=== PATIENT | male | born 1985 | race Caucasian/White ===

== ENCOUNTER → 2018-04-21 09:13 | Outpatient (CLI) | payer OTHER, SELFPAY ==
--- NOTE | 2018-04-21 09:19 | RAD_ITS ---
STUDY: X-RAY - LUMBAR SPINE REASON FOR EXAM: Male, 33 years old. Recurrent low back pain. TECHNIQUE: 5 view(s) of the lumbar spine were obtained including oblique views. COMPARISON: None FINDINGS: There is straightening of the normal lumbar lordosis. There is no substantial scoliosis. There is a normal alignment of the vertebrae. Normal vertebral bodies and endplates. Normal disc space heights. The soft tissue structures are unremarkable. RAD/L/S Spine Min 4 Views IMPRESSION: There is straightening of the normal lumbar lordosis. Electronically Signed: Pablo Cantrell MD at 13:48 EDT Tel [phone], Service support ,
== END ==
PROVIDERS: Family Provider Family Medicine; PCP Family Medicine; Visit Provider Family Medicine
DX: M54.5 Low back pain (principal)
CPT/HCPCS: 72110

== ENCOUNTER → 2019-05-03 13:16 | Outpatient (CLI) | payer OTHER, SELFPAY ==
[2015-05-11 19:13] VITALS: BMI 25.2
== END ==
PROVIDERS: Family Provider Family Medicine; PCP Family Medicine; Referring Provider Family Medicine; Visit Provider Family Medicine
DX: L03.90 Cellulitis, unspecified (principal)
CPT/HCPCS: 87070; 87077; 87186; 87205

== ENCOUNTER → 2019-09-26 08:25 | Outpatient (CLI) | payer OTHER, SELFPAY ==
[2015-05-11 19:13] VITALS: BMI 25.2
[2019-09-26 10:22] LABS: Anion Gap 9 (5-15); BUN 11 mg/dL (7-18); BUN/Creat Ratio 9.2 RATIO (10-20); Calcium,Total 8.7 mg/dL (8.5-10.1); Chloride 104 mmol/L (98-107); Cholesterol 222 mg/dL (200); Creatinine, Serum 1.19 mg/dL (0.70-1.30); EST Glomerular Filtration Rate 74 mL/min (>60); Est Glom Filt Rate - Afr Amer 90 mL/min (>60); Glucose 114 mg/dL (74-106); High Density Lipoprotein 34 mg/dL; Potassium 3.2 mmol/L (3.5-5.1); Sodium Level 141 mmol/L (136-145); Triglycerides 408 mg/dL
== END ==
PROVIDERS: Family Provider Family Medicine; PCP Family Medicine; Visit Provider Family Medicine
DX: Z00.00 Encounter for general adult medical examination without abnormal findings (principal)
CPT/HCPCS: 36415; 80048; 80061

== ENCOUNTER → 2019-10-16 13:12 | Outpatient (CLI) | payer OTHER, SELFPAY ==
[2015-05-11 19:13] VITALS: BMI 25.2
--- NOTE | 2019-10-16 13:17 | RAD_ITS ---
STUDY: X-RAY - PARANASAL SINUSES REASON FOR EXAM: Male, 34 years old. Headaches and dizziness. TECHNIQUE: 5 view(s) of the paranasal sinuses were obtained. COMPARISON: None. FINDINGS: Normal visualized frontal, maxillary, ethmoidal and sphenoid sinuses. Normal visualized facial bones. The soft tissue structures are unremarkable. RAD/Sinuses min 3 Views IMPRESSION: Normal x-rays of the paranasal sinuses. Electronically Signed: Griselda Chavez MD at 2:15 EST , Service support ,
[2019-10-16 15:37] LABS: Absolute Lymphocyte Count 1.47 X10^3/uL (0.83-4.51); Absolute Neutrophil Count 4.9 X10^3/uL (2.0-7.7); Basophil# 0.02 X10^3/uL; Basophil% 0.3 % (0-1); Eosinophil# 0.08 X10^3/uL; Eosinophils% 1.2 % (0-5); Hematocrit 44.8 % (40-54); Hemoglobin 14.8 g/dL (13.0-16.5); Lymphocyte # 1.47 X10^3/ul (4.0); Lymphocyte % 21.5 % (19-41); Mean Corpuscular Hgb 28.3 pg (27.0-32.0); Mean Corpuscular Volume 85.7 fL (80-94); Monocyte# 0.41 X10^3/uL; NRBC Flagged by Analyzer 0 % (0-5); Neutrophil # 4.85 X10^3/uL (2.7-7.7); Neutrophil % 70.9 % (47-70); Platelet Count 200 K/mm3 (150-450); RBC Distribution Width SD 40.1 fl (35.1-43.9); Red Blood Count 5.23 M/mm3 (4.6-6.2); White Blood Count 6.8 K/mm3 (4.4-11.0)
[2019-10-16 16:06] LABS: ALB/GLOB Ratio 1.2 RATIO (0.9-2.4); AST(SGOT) 22 U/L (15-37); Alanine Aminotransfer ALT/SGPT 39 U/L (16-61); Albumin, Serum 4.4 g/dL (3.2-5.0); Alkaline Phosphatase 80 U/L (45-117); Anion Gap 10 (5-15); BUN 12 mg/dL (7-18); BUN/Creat Ratio 10.3 RATIO (10-20); CRP < 2.90 mg/L (0.0-3.0); Calcium,Total 8.8 mg/dL (8.5-10.1); Chloride 105 mmol/L (98-107); Creatinine, Serum 1.16 mg/dL (0.70-1.30); EST Glomerular Filtration Rate 76 mL/min (>60); Est Glom Filt Rate - Afr Amer 92 mL/min (>60); Globulin 3.8 g/dL (2.2-4.2); Glucose 103 mg/dL (74-106); Magnesium 2.1 mg/dL (1.6-2.6); Potassium 3.1 mmol/L (3.5-5.1); Protein, Total 8.2 g/dL (6.4-8.2); Sodium Level 140 mmol/L (136-145)
[2019-10-18 16:08] LABS: Cytoplasmic Ab (C-ANCA) <1:20 titer (Neg:<1:20)
[2019-10-18 18:45] LABS: Perinuclear Ab (P-ANCA) <1:20 titer (Neg:<1:20)
== END ==
PROVIDERS: Family Provider Family Medicine; PCP Family Medicine; Referring Provider Family Medicine; Visit Provider Family Medicine
DX: E87.6 Hypokalemia (principal); J32.9 Chronic sinusitis, unspecified
CPT/HCPCS: 36415; 70220; 80053; 83735; 85025; 86140; 86256

== ENCOUNTER 2019-10-20 19:05 | Emergency (ER) | payer OTHER, SELFPAY ==
[2019-10-20 19:06] VITALS: BP 130/92; PULSE 85; RESP 16; TEMP 36.8; O2SAT 97; BMI 29.0
--- NOTE | 2019-10-20 19:14 | CT_ITS ---
STUDY: CTA HEAD AND NECK WITH CONTRAST REASON FOR EXAM: Male, 34 years old. Blurred vision, dissection RADIATION DOSAGE (If Supplied By Facility): CTDIvol = ( 29.51 ) mGy, DLP = ( 1505.48 ) mGycm TECHNIQUE: CT angiography was performed with a multi-detector CT scanner. Data acquisition was obtained from the skull base through the vertex following intravenous administration of IV Isovue 300 100ML. MIP images were reconstructed from the axial data set. Post-processing of the angiographic images was performed, with multiplanar reformation and 3D reconstruction. Individualized dose optimization techniques were used for this CT. COMPARISON: No relevant priors. FINDINGS: Normal bilateral petrous carotid arteries. Normal right cavernous carotid artery with a normal supraclinoid bifurcation. Normal left cavernous carotid artery with a normal supraclinoid bifurcation. Normal right A1 segments of the anterior cerebral artery. Normal left A1 segments of the anterior cerebral artery. Normal intact anterior communicating artery (ACOM). Normal bilateral A2 segments of the anterior cerebral arteries. Normal right M1 and M2 segments of the middle cerebral arteries, with a normal M1 bifurcation. Normal left M1 and M2 segments of the middle cerebral arteries, with a normal M1 bifurcation. Normal posterior communicating arteries. Normal left vertebral artery. 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 Normal basilar artery with a normal basilar bifurcation. The visualized bilateral superior cerebellar (SCA) arteries are normal. Normal bilateral P1, P2 and visualized P3 segments of the posterior cerebral arteries. There is no demonstrated aneurysm of the [place] of [place]. There is no demonstrated abnormality of the visualized brain. AORTIC ARCH: Normal visualized aortic arch. Normal origins of the brachiocephalic, left common carotid, and left subclavian arteries. RIGHT CAROTID ARTERIES: Normal right common carotid artery (CCA). Normal right common carotid bulb. Normal origin of the right internal carotid (ICA) artery without a hemodynamically significant stenosis. Normal visualized cervical portion of the right internal carotid artery. Normal origin of the right external carotid artery (ECA). LEFT CAROTID ARTERIES: Normal left common carotid artery (CCA). Normal left common carotid bulb. Normal origin of the left internal carotid (ICA) artery without a hemodynamically significant stenosis. Normal visualized cervical portion of the left internal carotid artery. Normal origin of the left external carotid artery (ECA). VERTEBRAL ARTERIES: Normal left vertebral artery. Mild hypoplasia of the lateral right vertebral artery. CT/CTA Head AND Neck W/ Contrast IMPRESSION: Normal CTA Head and neck with contrast. No aneurysm or dissection. 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 Electronically Signed: Ayo Rivera DO at 20:17 EST Tel [phone], Service support ,
[2019-10-20] MEDS: 0.9% Normal Saline 1,000 ML 1000 ML IV (19:23)
[2019-10-20] MEDS: proCHLORPERazine 10 MG/2 ML Vial 5 MG IV (19:24)
[2019-10-20] MEDS: DiphenhydrAMINE 50 MG/ML Syringe 25 MG IV (19:24)
--- NOTE | 2019-10-20 19:25 | ED.VIS.GEN ---
History of Present Illness Chief Complaint: Dizziness Informant: Patient Onset: Days Context: Gradual Onset Timing: Intermittent Current Severity: Moderate Maximum Severity: Moderate Narrative: The patient presents to the emergency department with headache and dizziness. He states he been having symptoms intermittently for the past few weeks. He is followed up with his primary care on Wednesday. States that he had x-rays done of the sinuses and blood work done. He was found to be hypokalemic. There was concern for sinusitis so he was started on Augmentin and prednisone. He states despite this treatment, he actually feels it is getting worse. He describes a frontal headache, pain in his eyes, and photophobia. He denies any weakness or numbness. He denies any change in speech or change in gait. He is otherwise been in his normal state of health. Prior similar symptoms: No Recent Illness/Hospitalization: No Past Medical History - Allergies and Home Meds Allergies/Adverse Reactions: Allergies No Known Allergies Allergy (Verified 10/20/19 19:06) Primary Care Physician: Alexis Campuazno MD [Primary Care Provider] - Prior records reviewed: Yes Past Medical History: - - Hypokalemia Smoking Status: Never smoker Review of Systems General: Denies: Chills, Fever, Sweats Eyes: Denies: Visual changes - bilaterally, Diplopia ENT: Denies: Rhinorrhea, Sore throat Cardiovascular: Denies: Chest pain, Palpitations Respiratory: Denies: Dyspnea, Cough, Dyspnea on exertion Gastrointestinal: Reports: Nausea. Denies: Abdominal pain, Vomiting, Diarrhea, Melena, Hematochezia Genitourinary: Denies: Dysuria, Hematuria, Frequency Musculoskeletal: Denies: Back pain, Extremity Pain Skin: Denies: Rash, Wounds Neurological: Reports: Headache. Denies: Weakness, Numbness Physical Exam Vital Signs/Narrative: Vital Signs Temp Pulse Resp BP Pulse Ox 10/20/19 19:06 98.3 F 85 16 130/92 H 97 Inital Vital Signs reviewed: Yes General: Well nourished, Well developed, No Acute Distress Head: Normocephalic, Atraumatic Eyes: Perrl, EOMI ENT: Moist mucous membranes, No rhinorrhea Neck: Supple, Nontender Cardiovascular: Regular rate, Regular rhythm, No murmurs Respiratory: No distress, CTA bilaterally, Chest nontender Abdomen: Soft, Nontender, Nondistended, Normal bowel sounds Back: Nontender, Normal Inspection Extremities: Nontender, No edema Skin: Normal color, No rash Neurological: Alert, Oriented x3, Cranial nerves II-XII grossly intact, Normal Strength, Normal Sensation Psychological: Normal affect, Normal Mood Diagnostic/Tx/Re-eval Clinical Impression(s) from Imaging Studies Head/Neck CTA 10/20/19 19:14 IMPRESSION: Normal CTA Head and neck with contrast. No aneurysm or dissection. 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 Electronically Signed: Ayo Rivera DO at 20:17 EST Tel [phone], Service support , Abnormal Lab Results 10/20/19 10/20/19 19:20 19:20 WBC 9.9 RBC 5.34 Hgb 15.6 Hct 45.8 MCV 85.8 MCH 29.2 MCHC 34.1 RDW Std Deviation 40.1 RDW Coeff of Danii 13.0 Plt Count 207 MPV 10.5 Immature Gran % (Auto) 0.400 Neut % (Auto) 62.7 Lymph % (Auto) 30.0 [place] % (Auto) 5.8 Eos % (Auto) 0.9 Baso % (Auto) 0.2 Absolute Neuts (auto) 6.2 Absolute Lymphs (auto) 2.98 Nucleated RBC % 0 Sodium 141 Potassium 3.1 L Chloride 105 Carbon Dioxide 29.0 Anion Gap 7 BUN 10 Creatinine 1.06 Estim Creat Clear Calc 110.97 Est GFR (MDRD) Af Amer 103 Est GFR (MDRD) Non-Af 85 BUN/Creatinine Ratio 9.4 L Glucose 129 H Calcium 8.7 Total Bilirubin 0.30 AST 26 ALT 51 Alkaline Phosphatase 80 Total Protein 7.9 Albumin 4.1 Globulin 3.8 Albumin/Globulin Ratio 1.1 - Medical Decision Making The patient presents to the emergency department with dizziness and frontal headache. He states of the past few days, he feels like his symptoms worsen. He has a reassuring neurologic exam. He is not meningitic or encephalopathic. However, given the waxing and waning of his symptoms I did obtain a noncontrast head CT and CTA's of his arterial structures. There is no evidence of acute abnormality. The patient was found to be hypokalemic which was replaced orally. He was initially given Compazine and Benadryl with no improvement. He was then given meclizine. He did have some improvement. I discussed his work-up and plan of care with Dr. Randolph Kemp, the patient's primary care physician. He is in agreement. At this point, I do feel the patient can safely be discharged. He is going to follow-up early next week or return with any worsening symptoms. Impression 1. Vertigo 2. Hypokalemia ED Disposition - Plan for ED Patient: Instructions: VERTIGO, Unspecified Prescriptions: Meclizine HCl 25 mg PO TID PRN PRN #30 tab PRN Reason: Dizziness Prescription Printed Referrals: Alexis Campuzano MD [Primary Care Provider] -
[2019-10-20 19:41] LABS: ALB/GLOB Ratio 1.1 RATIO (0.9-2.4); AST(SGOT) 26 U/L (15-37); Alanine Aminotransfer ALT/SGPT 51 U/L (16-61); Albumin, Serum 4.1 g/dL (3.2-5.0); Alkaline Phosphatase 80 U/L (45-117); Anion Gap 7 (5-15); BUN 10 mg/dL (7-18); BUN/Creat Ratio 9.4 RATIO (10-20); Calcium,Total 8.7 mg/dL (8.5-10.1); Chloride 105 mmol/L (98-107); Creatinine, Serum 1.06 mg/dL (0.70-1.30); EST Glomerular Filtration Rate 85 mL/min (>60); Est Glom Filt Rate - Afr Amer 103 mL/min (>60); Estimated Creatinine Clearance 110.97 ml/min; Globulin 3.8 g/dL (2.2-4.2); Glucose 129 mg/dL (74-106); Potassium 3.1 mmol/L (3.5-5.1); Protein, Total 7.9 g/dL (6.4-8.2); Sodium Level 141 mmol/L (136-145)
[2019-10-20 19:55] VITALS: BP 110/80; PULSE 57; RESP 16; O2SAT 100
[2019-10-20 20:18] LABS: Absolute Lymphocyte Count 2.98 X10^3/uL (0.83-4.51); Absolute Neutrophil Count 6.2 X10^3/uL (2.0-7.7); Basophil# 0.02 X10^3/uL; Basophil% 0.2 % (0-1); Eosinophil# 0.09 X10^3/uL; Eosinophils% 0.9 % (0-5); Hematocrit 45.8 % (40-54); Hemoglobin 15.6 g/dL (13.0-16.5); Lymphocyte # 2.98 X10^3/ul (4.0); Mean Corp Hgb Conc 34.1 g/dL (32-36); Mean Corpuscular Hgb 29.2 pg (27.0-32.0); Mean Corpuscular Volume 85.8 fL (80-94); Mean Platelet Vol. 10.5 fl (6.2-12.0); Monocyte# 0.58 X10^3/uL; Monocyte% 5.8 % (0-10); NRBC Flagged by Analyzer 0 % (0-5); Neutrophil # 6.22 X10^3/uL (2.7-7.7); Neutrophil % 62.7 % (47-70); Platelet Count 207 K/mm3 (150-450); RBC Distribution Width SD 40.1 fl (35.1-43.9); Red Blood Count 5.34 M/mm3 (4.6-6.2); White Blood Count 9.9 K/mm3 (4.4-11.0)
[2019-10-20] MEDS: Meclizine HCl 25 MG Tablet PO (20:28)
[2019-10-20 21:25] VITALS: BP 114/73; PULSE 65; RESP 16; O2SAT 97
== END 2019-10-20 21:26 | disposition home or self-care (01) ==
LOC: ED 19:48
PROVIDERS: Emergency Provider Emergency Medicine; Family Provider Family Medicine; PCP Family Medicine
DX: R42 Dizziness and giddiness (principal); E87.6 Hypokalemia; R11.0 Nausea; R51 Headache; Z79.52 Long term (current) use of systemic steroids; Z79.899 Other long term (current) drug therapy
CPT/HCPCS: 70496; 70498; 80053; 85025; 96361; 96374; 96375; 99285; J7030; Q9967

== ENCOUNTER → 2019-10-27 10:49 | Outpatient (CLI) | payer OTHER, SELFPAY ==
[2019-10-20 19:06] VITALS: BMI 29.0
[2019-10-27 12:24] LABS: Anion Gap 9 (5-15); BUN 11 mg/dL (7-18); BUN/Creat Ratio 10.5 RATIO (10-20); Calcium,Total 8.5 mg/dL (8.5-10.1); Chloride 104 mmol/L (98-107); Creatinine, Serum 1.05 mg/dL (0.70-1.30); EST Glomerular Filtration Rate 86 mL/min (>60); Est Glom Filt Rate - Afr Amer 104 mL/min (>60); Glucose 99 mg/dL (74-106); Potassium 3.7 mmol/L (3.5-5.1); Sodium Level 137 mmol/L (136-145)
[2019-11-02 11:53] LABS: Aldosterone, Serum 8.6 ng/dL (0.0-30.0)
== END ==
PROVIDERS: Family Provider Family Medicine; PCP Family Medicine; Referring Provider Family Medicine; Visit Provider Family Medicine
DX: E87.6 Hypokalemia (principal); R42 Dizziness and giddiness
CPT/HCPCS: 36415; 80048; 82088; 82533

== ENCOUNTER 2019-10-31 14:22 | Emergency (ER) | payer OTHER, SELFPAY ==
[2019-10-31 14:23] VITALS: BP 143/73; PULSE 89; RESP 18; TEMP 36.6; O2SAT 98; BMI 26.4
--- NOTE | 2019-10-31 14:41 | RAD_ITS ---
STUDY: X-RAY CHEST REASON FOR EXAM: Male, 34 years old. Chest pain and chest congestion. TECHNIQUE: PA and lateral views of the chest. COMPARISON: None. FINDINGS: The lungs are clear and expanded. Scattered calcified granulomas. There is no demonstrated pleural abnormality. Normal size heart. Normal mediastinum and nina. Normal visualized pulmonary arteries. Normal visualized aortic arch and descending thoracic aorta. Normal visualized thoracic spine. Normal visualized ribs, clavicles, and shoulders. There is no demonstrated abnormality of the visualized soft tissue structures of the upper abdomen. RAD/Chest PA and Lateral IMPRESSION: Normal x-ray examination of the chest. Electronically Signed: Pablo Cantrell, at 14:59 EST , Service support ,
--- NOTE | 2019-10-31 14:41 | EKG12_ITS ---
Test Reason : CP Blood Pressure : / mmHG Vent. Rate : 076 BPM Atrial Rate : 076 BPM P-R Int : 144 ms QRS Dur : 074 ms QT Int : 342 ms P-R-T Axes : 068 048 003 degrees QTc Int : 384 ms Normal sinus rhythm Nonspecific ST abnormality Abnormal ECG Confirmed by OMAR JIMENEZ ([id number]), slot editor JAISON MATT ([id number]) on 11/05/2019 9:22:07 AM Referred By: Alexis Campuzano Confirmed By:OMAR JIMENEZ
[2019-10-31 15:55] VITALS: BP 112/72; PULSE 77; RESP 16; O2SAT 96
[2019-10-31 16:05] LABS: Absolute Neutrophil Count 5.2 X10^3/uL (2.0-7.7); Basophil# 0.02 X10^3/uL; Basophil% 0.3 % (0-1); Eosinophil# 0.06 X10^3/uL; Eosinophils% 0.8 % (0-5); Hematocrit 45.5 % (40-54); Hemoglobin 15.4 g/dL (13.0-16.5); Lymphocyte % 21.8 % (19-41); Mean Corp Hgb Conc 33.8 g/dL (32-36); Mean Corpuscular Volume 85.7 fL (80-94); Mean Platelet Vol. 10.3 fl (6.2-12.0); Monocyte# 0.46 X10^3/uL; Monocyte% 6.3 % (0-10); NRBC Flagged by Analyzer 0 % (0-5); Neutrophil # 5.16 X10^3/uL (2.7-7.7); Neutrophil % 70.3 % (47-70); Platelet Count 195 K/mm3 (150-450); RBC Distribution Width SD 40.5 fl (35.1-43.9); Red Blood Count 5.31 M/mm3 (4.6-6.2); White Blood Count 7.3 K/mm3 (4.4-11.0)
--- NOTE | 2019-10-31 16:16 | ED.DCSUM_ITS ---
History of Present Illness Chief Complaint: Chest Pain Informant: Patient Narrative: Patient presenting for evaluation secondary to chest pain. Patient states that over the course of about the last 2 or 3 weeks he has been dealing with issues with headache and dizziness. He does describe the dizziness as a unsteadiness type feeling such as a vertigo. It is intermittent, not really severe. He initially was treated for possible sinusitis with antibiotics and steroids. He was seen subsequently in the emergency department for this, had CT angiograms performed of the brain and neck as well as noncontrasted head CT. This was found to be negative. Patient states that over the course of about the last 5 days he has been dealing with left-sided chest pain. He states that it is worse with taking a deep breath, and over the course of the last 3 days he has been feeling somewhat short of breath. He denies fevers. He does have a mild nonproductive cough. He denies any DVT or PE risk factors. Patient states that recently he has had some posterior pharyngeal drainage that has been causing some discomfort with swallowing. He denies any rhinorrhea. Past Medical History - Allergies and Home Meds Allergies/Adverse Reactions: Allergies No Known Allergies Allergy (Verified 10/31/19 14:25) Primary Care Physician: Alexis Campuzano MD [Primary Care Provider] - Past Medical History: None Smoking Status: Never smoker Review of Systems All systems negative except as indicated General: Denies: Chills, Fever, Sweats Eyes: Denies: Visual changes - bilaterally, Diplopia ENT: Reports: Sore throat Cardiovascular: Reports: Chest pain Respiratory: Reports: Dyspnea Gastrointestinal: Denies: Abdominal pain, Nausea, Vomiting, Diarrhea, Melena, Hematochezia Genitourinary: Denies: Dysuria, Hematuria, Frequency Musculoskeletal: Denies: Back pain, Extremity Pain Skin: Denies: Rash, Wounds Neurological: Reports: - - Vertigo. Denies: Headache Psych: Denies: Depression Endocrine: Denies: Polyuria, Polydipsia Hematologic: Denies: Easy bleeding Allergy: Denies: Swelling of the mouth Physical Exam Vital Signs/Narrative: Vital Signs Temp Pulse Resp BP Pulse Ox 10/31/19 15:55 77 16 112/72 96 10/31/19 14:23 98 F 89 18 143/73 H 98 Inital Vital Signs reviewed: Yes General: Well nourished, Well developed, No Acute Distress Head: Normocephalic, Atraumatic Eyes: Perrl, EOMI ENT: Moist mucous membranes, No rhinorrhea, TM's clear - Mild sclerosis of the patient's right tympanic membrane without evidence of retraction or erosion Neck: Supple, Nontender Cardiovascular: Regular rate, Regular rhythm, No murmurs Respiratory: No distress, CTA bilaterally, Chest nontender Abdomen: Soft, Nontender, Nondistended, Normal bowel sounds Back: Nontender, Normal Inspection Extremities: Nontender, No edema Skin: Normal color, No rash Neurological: Alert, Oriented x3, Cranial nerves II-XII grossly intact, Normal Strength, Normal Sensation, - - Normal cerebellar testing with no ataxia noted Psychological: Normal affect, Normal Mood Diagnostic/Tx/Re-eval Chest X-Ray - ED: 2 View, Read by ED Physician, Read by Radiologist, Normal - EKG Initial EKG Interpretation: - - Normal sinus rhythm with rate of [address] changes, normal T waves, no evidence of acute ischemia or arrhythmia. - Medical Decision Making Patient presented secondary to chest pain. EKG showed some nonspecific changes no evidence of ischemia or arrhythmia. PA and lateral chest x-ray by my review is found to be negative, radiology agrees. CBC chemistry troponin unremarkable. Due to the pleuritic component of the patient's pain a d-dimer was obtained which was found to be negative. Patient likely has an element of pleuritic chest pain, will be treated for pleurisy with a course of NSAIDs. Patient still has this persistent vertigo issue. He has follow-up with ear nose and throat tomorrow, and is pending a appointment with a neurologist with which she recently was referred to. I recommended that he keep these appointments. He c urrently has no evidence of infection, vascular compromise, stroke. I do not feel that the patient requires admission at this time. ED Disposition - Plan for ED Patient: Disposition: Home or Assisted Living Diagnosis: Pleurisy, Vertigo Instructions: Pleurisy Prescriptions: Naproxen [Naprosyn] 500 mg PO BID PRN #20 tab Transmission Status: Pending to [facility]/pharmacy #[id number] Referrals: Alexis Campuzano MD [Primary Care Provider] - Additional Instructions: Follow-up with ENT as well as neurology
[2019-10-31 16:20] LABS: D-Dimer Quantitative (DVT/PE) 0.33 FEU/ug/m (0.27-0.49)
[2019-10-31 16:23] LABS: Anion Gap 5 (5-15); BUN 11 mg/dL (7-18); BUN/Creat Ratio 9.2 RATIO (10-20); Calcium,Total 9.1 mg/dL (8.5-10.1); Chloride 108 mmol/L (98-107); EST Glomerular Filtration Rate 73 mL/min (>60); Est Glom Filt Rate - Afr Amer 89 mL/min (>60); Estimated Creatinine Clearance 98.03 ml/min; Glucose 99 mg/dL (74-106); Potassium 3.7 mmol/L (3.5-5.1); Sodium Level 141 mmol/L (136-145)
[2019-10-31 17:17] VITALS: BP 100/71; PULSE 69; O2SAT 98
== END 2019-10-31 17:17 | disposition home or self-care (01) ==
PROVIDERS: Emergency Provider Emergency Medicine; Family Provider Family Medicine; PCP Family Medicine
DX: R09.1 Pleurisy (principal); R42 Dizziness and giddiness; H73.891 Other specified disorders of tympanic membrane, right ear; J02.9 Acute pharyngitis, unspecified; Z79.899 Other long term (current) drug therapy
CPT/HCPCS: 71046; 80048; 84484; 85025; 85379; 93005; 99284

== ENCOUNTER 2019-12-04 08:58 | Emergency (ER) | payer OTHER, SELFPAY ==
[2019-12-04 08:59] VITALS: BP 129/79; PULSE 94; RESP 17; TEMP 36.7; O2SAT 99; BMI 28.3
--- NOTE | 2019-12-04 09:19 | ED.DCSUM_ITS ---
History of Present Illness Chief Complaint: Abd Pain Informant: Patient, Significant Other Onset: Days - Onset of illness December 01 at 0300. Patient reported periumbilical abdominal pain described as sharp with loose watery stools. States stools were no longer watery by noon on December 01. He complains of nausea without vomiting. He denies radiation of the pain. Nothing in particular makes the pain better or worse. He was treated for epididymitis with azithromycin. He took 1 dose the day prior to illness. He has not taken any since. Context: Sudden Onset Timing: Continuous Quality: Sharp pain Location: Periumbilical Current Severity: Mild Maximum Severity: Moderate Worsened by: Nothing Relieved by: Nothing Associated Symptoms: Previously documented Narrative: Onset of illness December 01 at 0300. Patient reported periumbilical abdominal pain described as sharp with loose watery stools. States stools were no longer watery by noon on December 01. He complains of nausea without vomiting. He denies radiation of the pain. Nothing in particular makes the pain better or worse. He was treated for epididymitis with azithromycin. He took 1 dose the day prior to illness. He has not taken any since. He denies dysuria, frequency, urgency or hematuria. He still complains of mild left testicular pain. There is no history of diverticulosis diverticulitis. He still has an appetite but has not eaten as much. He denies respiratory symptoms. Prior similar symptoms: No Recent Illness/Hospitalization: No - Past Medical History (1) History of hypercholesterolemia Status: Acute Past Medical History - Allergies and Home Meds Allergies/Adverse Reactions: Allergies No Known Allergies Allergy (Verified 12/04/19 08:58) Primary Care Physician: Alexis Campuzano MD [Primary Care Provider] - Prior records reviewed: Yes Lives: Spouse/ Significant Other, With Family Smoking Status: Never smoker Alcohol: Rare Drugs: None Review of Systems General: Reports: Chills, Malaise. Denies: Fever, Subjective, Sweats Eyes: Denies: Visual changes - bilaterally, Blurred Vision - bilaterally, Diplopia ENT: Denies: Bilateral ear pain, Rhinorrhea, Sore throat Cardiovascular: Denies: Chest pain, Palpitations Respiratory: Denies: Dyspnea, Cough, Dyspnea on exertion, Orthopnea, Paroxysmal nocturnal dyspnea Gastrointestinal: Reports: Abdominal pain, Nausea, Diarrhea. Denies: Vomiting, Constipation, Melena, Hematochezia Genitourinary: Denies: Dysuria, Hematuria Musculoskeletal: Denies: Myalgias, Arthralgias, Neck pain, Back pain, Swelling, Extremity Pain Skin: Denies: Rash, Wounds Neurological: Reports: Weakness. Denies: Headache, Parasthesia Endocrine: Denies: Polyuria, Polydipsia Hematologic: Denies: Easy bruising, Easy bleeding Allergy: Denies: Uticaria, Swelling of the mouth Physical Exam Vital Signs/Narrative: Vital Signs Temp Pulse Resp BP Pulse Ox 12/04/19 08:59 98.1 F 94 17 129/79 H 99 Inital Vital Signs reviewed: Yes General: Well nourished, Well developed, No Acute Distress Head: Normocephalic, Atraumatic Eyes: Perrl, EOMI. Negative for: Pale conjunctiva, Scleral icterus ENT: No rhinorrhea, Dry mucous membranes Neck: Supple, Nontender, No lymphadenopathy, No JVD Cardiovascular: Regular rate, Regular rhythm, No murmurs, Normal S1, Normal S2 Respiratory: No distress, CTA bilaterally, Chest nontender Abdomen: Soft, Nondistended - There is tympany to percussion., Normal bowel sounds, No masses, Tender. Negative for: Guarding, Rebound tenderness, Hepatomegaly, Splenomegaly, Mass, Pulsatile mass, Rovsig's sign, Calvillo's sign Rectal: Deferred Back: Nontender, Normal Inspection. Negative for: CVA tenderness Extremities: Nontender, No edema Skin: Normal color, No rash Neurological: Alert, Oriented x3, Cranial nerves II-XII grossly intact, Normal Strength, Normal Sensation Psychological: Normal affect, Normal Mood Diagnostic/Tx/Re-eval Laboratory Results 12/04/19 12/04/19 09:30 09:30 WBC 5.8 RBC 5.46 Hgb 15.6 Hct 46.9 MCV 85.9 MCH 28.6 MCHC 33.3 RDW Std Deviation 39.8 RDW Coeff of Danii 12.9 Plt Count 184 MPV 9.7 Immature Gran % (Auto) 0.300 Neut % (Auto) 67.6 Lymph % (Auto) 23.4 [place] % (Auto) 6.6 Eos % (Auto) 1.9 Baso % (Auto) 0.2 Absolute Neuts (auto) 3.9 Absolute Lymphs (auto) 1.35 Nucleated RBC % 0 Sodium 139 Potassium 3.5 Chloride 105 Carbon Dioxide 30.0 Anion Gap 4 L BUN 11 Creatinine 1.21 Estim Creat Clear Calc 97.22 Est GFR (MDRD) Af Amer 88 Est GFR (MDRD) Non-Af 73 BUN/Creatinine Ratio 9.1 L Glucose 93 Calcium 8.6 Laboratory results are unremarkable. - Medical Decision Making Patient symptoms may be secondary to adverse reaction to azithromycin. This may represent a viral illness. Because patient had poor p.o. intake will obtain basic metabolic panel to assess electrolytes and renal function. CBC was obtained to assess H&H. Since clinically he appears dehydrated he received 1 L of normal saline wide open and 20 of Bentyl p.o. for his sharp constant abdominal pain. Was informed of his results. He was informed this may secondary to the azithromycin. ED Disposition - Plan for ED Patient: Disposition: Home or Assisted Living Diagnosis: Acute abdominal pain, Nausea and vomiting Instructions: ABDOMINAL PAIN, Unkown Cause, (Male) Referrals: Alexis Campuzano MD [Primary Care Provider] - 1 Week if not improving
[2019-12-04] MEDS: 0.9% Normal Saline 1,000 ML 1000 ML IV (09:30)
[2019-12-04 09:41] LABS: Absolute Lymphocyte Count 1.35 X10^3/uL (0.83-4.51); Absolute Neutrophil Count 3.9 X10^3/uL (2.0-7.7); Basophil# 0.01 X10^3/uL; Basophil% 0.2 % (0-1); Eosinophil# 0.11 X10^3/uL; Eosinophils% 1.9 % (0-5); Hematocrit 46.9 % (40-54); Hemoglobin 15.6 g/dL (13.0-16.5); Lymphocyte # 1.35 X10^3/ul (4.0); Lymphocyte % 23.4 % (19-41); Mean Corp Hgb Conc 33.3 g/dL (32-36); Mean Corpuscular Hgb 28.6 pg (27.0-32.0); Mean Corpuscular Volume 85.9 fL (80-94); Mean Platelet Vol. 9.7 fl (6.2-12.0); Monocyte# 0.38 X10^3/uL; Monocyte% 6.6 % (0-10); NRBC Flagged by Analyzer 0 % (0-5); Neutrophil # 3.89 X10^3/uL (2.7-7.7); Neutrophil % 67.6 % (47-70); Platelet Count 184 K/mm3 (150-450); RBC Distribution Width CV 12.9 % (11.6-14.6); RBC Distribution Width SD 39.8 fl (35.1-43.9); Red Blood Count 5.46 M/mm3 (4.6-6.2); White Blood Count 5.8 K/mm3 (4.4-11.0)
[2019-12-04 09:50] LABS: Anion Gap 4 (5-15); BUN 11 mg/dL (7-18); BUN/Creat Ratio 9.1 RATIO (10-20); Calcium,Total 8.6 mg/dL (8.5-10.1); Chloride 105 mmol/L (98-107); Creatinine, Serum 1.21 mg/dL (0.70-1.30); EST Glomerular Filtration Rate 73 mL/min (>60); Est Glom Filt Rate - Afr Amer 88 mL/min (>60); Estimated Creatinine Clearance 97.22 ml/min; Glucose 93 mg/dL (74-106); Potassium 3.5 mmol/L (3.5-5.1); Sodium Level 139 mmol/L (136-145)
[2019-12-04] MEDS: Dicyclomine 10 MG Capsule 20 MG PO (09:54)
== END 2019-12-04 10:54 | disposition home or self-care (01) ==
PROVIDERS: Emergency Provider Emergency Medicine; Family Provider Family Medicine; PCP Family Medicine
DX: R10.33 Periumbilical pain (principal); R11.2 Nausea with vomiting, unspecified; E78.00 Pure hypercholesterolemia, unspecified; Z79.899 Other long term (current) drug therapy
CPT/HCPCS: 80048; 85025; 96360; 99284; J7030; A4216

== ENCOUNTER → 2019-12-21 09:21 | Outpatient (CLI) | payer OTHER, SELFPAY ==
[2019-12-04 08:59] VITALS: BMI 28.3
--- NOTE | 2019-12-21 09:35 | MRI_ITS ---
STUDY: MRI BRAIN WITH AND WITHOUT CONTRAST REASON FOR EXAM: Male, 34 years old. ataxia, headaches, dizziness, blurry vision eyes hurt x 2 mons TECHNIQUE: Standardized multiplanar fat and water weighted pulse sequences were obtained. IV 19 dotarem was administered for the contrast portion of the examination. COMPARISON: None. FINDINGS: Normal size of the ventricles and extra-axial spaces for the patient''s age. Normal white matter tracts of the supratentorial brain. Normal bilateral basal ganglia. Normal thalami. There is no extra-axial fluid accumulation. Normal flow voids within the major intracranial circulation suggesting patency by spin echo criteria. Normal venous enhancement. There is no enhancing intra-axial or extra-axial abnormality. Normal sella turcica, pituitary gland, infundibular stalk, optic chiasm and hypothalamus. Normal tectal plate and pineal gland. Normal midbrain, kishore and medulla. Normal cerebellum. Normal basal cisterns. Normal bilateral temporal bones. MRI/Brain W/WO Contrast IMPRESSION: Normal unenhanced and enhanced MRI of the brain. Electronically Signed: Rasheed Sue MD at 10:31 EST Tel , Service support ,
== END ==
PROVIDERS: Family Provider Family Medicine; PCP Family Medicine; Referring Provider Psychiatry & Neurology Neurology; Visit Provider Psychiatry & Neurology Neurology
DX: R27.0 Ataxia, unspecified (principal)
CPT/HCPCS: 70553; A9575

== ENCOUNTER → 2019-12-29 10:04 | Outpatient (CLI) | payer OTHER, SELFPAY ==
[2019-12-04 08:59] VITALS: BMI 28.3
--- NOTE | 2019-12-29 10:07 | RAD_ITS ---
STUDY: X-RAY CHEST REASON FOR EXAM: Male, 34 years old. CHEST PAIN AND SHORTNESS OF BREATH X 1 WEEK TECHNIQUE: PA and lateral views of the chest. COMPARISON: 10/31/2019. FINDINGS: There is question bullous disease within the right lung apex, otherwise the lungs are clear and expanded. There is no demonstrated pleural abnormality. Normal size heart. Normal mediastinum and nina. Normal visualized pulmonary arteries. Normal visualized aortic arch and descending thoracic aorta. Normal visualized thoracic spine. Normal visualized ribs, clavicles, and shoulders. There is no demonstrated abnormality of the visualized soft tissue structures of the upper abdomen. RAD/Chest PA and Lateral IMPRESSION: Possible bullous disease at the right lung apex, otherwise normal x-ray examination of the chest. Electronically Signed: Griselda Chavez MD at 4:00 EST , Service support ,
[2019-12-29 12:33] LABS: Absolute Lymphocyte Count 1.67 X10^3/uL (0.83-4.51); Absolute Neutrophil Count 3.2 X10^3/uL (2.0-7.7); Basophil# 0.02 X10^3/uL; Basophil% 0.4 % (0-1); Eosinophils% 3.6 % (0-5); Hematocrit 47.5 % (40-54); Lymphocyte # 1.67 X10^3/ul (4.0); Lymphocyte % 30.3 % (19-41); Mean Corp Hgb Conc 33.7 g/dL (32-36); Mean Corpuscular Hgb 29.1 pg (27.0-32.0); Mean Corpuscular Volume 86.4 fL (80-94); Mean Platelet Vol. 10.4 fl (6.2-12.0); Monocyte# 0.43 X10^3/uL; Monocyte% 7.8 % (0-10); NRBC Flagged by Analyzer 0 % (0-5); Neutrophil # 3.18 X10^3/uL (2.7-7.7); Neutrophil % 57.7 % (47-70); Platelet Count 215 K/mm3 (150-450); RBC Distribution Width CV 12.3 % (11.6-14.6); RBC Distribution Width SD 39.1 fl (35.1-43.9); White Blood Count 5.5 K/mm3 (4.4-11.0)
[2019-12-29 12:50] LABS: Anion Gap 7 (5-15); BUN 13 mg/dL (7-18); BUN/Creat Ratio 12.1 RATIO (10-20); Calcium,Total 9.2 mg/dL (8.5-10.1); Chloride 107 mmol/L (98-107); Creatinine, Serum 1.07 mg/dL (0.70-1.30); EST Glomerular Filtration Rate 84 mL/min (>60); Est Glom Filt Rate - Afr Amer 101 mL/min (>60); Glucose 99 mg/dL (74-106); Potassium 3.8 mmol/L (3.5-5.1); Sodium Level 139 mmol/L (136-145)
== END ==
PROVIDERS: PCP Family Medicine; Referring Provider Family Medicine; Visit Provider Family Medicine
DX: E87.6 Hypokalemia (principal); R06.02 Shortness of breath
CPT/HCPCS: 36415; 71046; 80048; 85025

== ENCOUNTER → 2020-01-10 16:41 | Outpatient (CLI) | payer OTHER, SELFPAY ==
--- NOTE | 2020-01-10 16:46 | CT_ITS ---
STUDY: CT CHEST WITHOUT CONTRAST REASON FOR EXAM: Male, 34 years old. Cough RADIATION DOSAGE (If Supplied By Facility): DLP = ( 699.53 ) mGycm TECHNIQUE: Transaxial imaging was performed without the administration of intravenous contrast material. Coronal and sagittal reformatted images were created. Individualized dose optimization techniques were used for this CT. COMPARISON: None FINDINGS: There are no pulmonary infiltrates or pleural effusions. There are no pulmonary nodules or masses. There is no pneumothorax. Evidence of old granulomatous disease is present. The heart and pericardium are within normal limits. There is no thoracic lymphadenopathy. There is no evidence of thoracic aortic aneurysm. Images through the upper abdomen demonstrate no significant abnormality. There are no destructive osseous lesions. CT/Chest without Contrast IMPRESSION: No evidence of acute pathology in the chest. Electronically Signed: Quintin Weiss, at 17:08 EST Tel , Service support ,
== END ==
PROVIDERS: PCP Family Medicine; Referring Provider Internal Medicine Pulmonary Disease; Visit Provider Internal Medicine Pulmonary Disease
DX: R05 Cough (principal); R06.00 Dyspnea, unspecified; R07.9 Chest pain, unspecified
CPT/HCPCS: 71250

== ENCOUNTER → 2020-01-24 12:12 | Outpatient (CLI) | payer OTHER, SELFPAY ==
--- NOTE | 2020-01-24 12:18 | RAD_ITS ---
STUDY: X-RAY - LUMBAR SPINE REASON FOR EXAM: Male, 34 years old. low back pain TECHNIQUE: 5 view(s) of the lumbar spine were obtained. COMPARISON: None FINDINGS: There is reversal of the normal lumbar lordosis. There is no substantial scoliosis. There is a normal alignment of the vertebrae. Normal vertebral bodies and endplates. Normal disc space heights. There is no demonstrated fracture. There is no demonstrated spondylolysis of the pars interarticulares. The soft tissue structures are unremarkable. RAD/L/S Spine Min 4 Views IMPRESSION: Straightening of the lumbar spine. Otherwise, normal lumbar spine. Electronically Signed: Carol Cao MD at 23:52 EST , Service support ,
== END ==
PROVIDERS: PCP Family Medicine; Referring Provider Chiropractor; Visit Provider Chiropractor
DX: S33.5XXA Sprain of ligaments of lumbar spine, initial encounter (principal)
CPT/HCPCS: 72110

== ENCOUNTER → 2020-01-31 16:15 | Outpatient (CLI) | payer OTHER, SELFPAY ==
--- NOTE | 2020-01-31 16:24 | MRI_ITS ---
STUDY: MRI LUMBAR SPINE WITHOUT CONTRAST REASON FOR EXAM: Male, 34 years old. LUMBAR STRAIN, pain low back, no radiculopathy -- NKI TECHNIQUE: Standardized fat and water weighted pulse sequences were obtained in the sagittal and axial planes. COMPARISON: None FINDINGS: T12-L1: Normal endplates. Normal disc height, hydration and morphology. Normal bilateral facet joints. Normal central canal and bilateral lateral recesses. Normal bilateral intervertebral neural foramina. Decreased lumbar lordosis. There is no substantial scoliosis. Normal conus medullaris that terminates at T12-L1 L1-2: Normal endplates. Normal disc height, hydration and morphology. Normal bilateral facet joints. Normal central canal and bilateral lateral recesses. Normal bilateral intervertebral neural foramina. L2-3: Normal endplates. Normal disc height, hydration and morphology. Normal bilateral facet joints. Normal central canal and bilateral lateral recesses. Normal bilateral intervertebral neural foramina. L3-4: Normal endplates. Normal disc height, hydration and morphology. Normal bilateral facet joints. Normal central canal and bilateral lateral recesses. Normal bilateral intervertebral neural foramina. L4-5: Normal endplates. Normal disc height, desiccation and minor annular bulge with tiny right paracentral annular tear and tiny disc protrusion.. Mild facet arthropathy.. Normal central canal and bilateral lateral recesses. Mild bilateral neural foraminal encroachment.. L5-S1: Normal endplates. Normal disc height, desiccation and minimal bulge.. Mild facet arthropathy.. Normal central canal and bilateral lateral recesses. Normal bilateral intervertebral neural foramina. Normal visualized sacral ala. Normal visualized paraspinous soft tissue structures. MRI/Spine Lumbar (Routine) IMPRESSION: No evidence for acute fracture or other significant bony pathology. Mild spinal stenosis at L4-5 secondary to mild bulging annulus with tiny right paracentral annular tear and tiny central disc protrusion with mild facet arthropathy. Minimal annular bulge at L5-S1 and mild facet arthropathy without significant spinal stenosis Electronically Signed: Quintin Rai MD at 18:05 EST , Service support ,
== END ==
PROVIDERS: PCP Family Medicine; Referring Provider Chiropractor
DX: S33.5XXA Sprain of ligaments of lumbar spine, initial encounter (principal)
CPT/HCPCS: 72148

== ENCOUNTER → 2020-03-28 12:58 | Outpatient (CLI) | payer OTHER, SELFPAY ==
--- NOTE | 2020-03-28 13:01 | CT_ITS ---
STUDY: CT ABDOMEN AND PELVIS WITHOUT CONTRAST REASON FOR EXAM: Male, 35 years old. LLQ pain/tenderness x 2-3 months. No prior surgery, cancer, diabetes, hypertension. RADIATION DOSAGE (If Supplied By Facility): CTDIvol = ( 9.03 ) mGy, DLP = ( 512.40 ) mGycm TECHNIQUE: Transaxial images were obtained from the dome of the diaphragm to the symphysis pubis without oral contrast, and without intravenous contrast. Sagittal and coronal images were reconstructed. Individualized dose optimization techniques were used for this CT. COMPARISON: None. FINDINGS: Calcified granuloma in the peripheral aspect of the right lower lobe. The visualized portions of the heart are within normal limits. Normal liver. Normal gallbladder and extrahepatic biliary system. There is mild splenomegaly. Normal pancreas. Normal bilateral adrenal glands. Normal right kidney. Normal left kidney. There is a small hiatal hernia. Normal small intestine. Normal colon. The appendix is visualized and appears normal. Normal abdominal aorta. Normal inferior vena cava. Normal retroperitoneum. Normal urinary bladder. Calcified phlebolith in the left hemipelvis. There is a small umbilical hernia containing fat. Straightening of the normal lumbar lordosis. CT/Abdomen/Pelvis without Cont IMPRESSION: Mild splenomegaly. Electronically Signed: Pablo Cantrell, at 13:38 EDT , Service support ,
== END ==
PROVIDERS: PCP Family Medicine; Referring Provider Urology; Visit Provider Urology
DX: R10.813 Right lower quadrant abdominal tenderness (principal)
CPT/HCPCS: 74176

== ENCOUNTER → 2021-09-10 09:15 | Outpatient (CLI) | payer OTHER, SELFPAY ==
[2021-09-10 10:52] LABS: AST(SGOT) 21 U/L (15-37); Alanine Aminotransfer ALT/SGPT 42 U/L (16-61); Albumin, Serum 3.9 g/dL (3.2-5.0); Alkaline Phosphatase 81 U/L (45-117); Anion Gap 7 (5-15); BUN 12 mg/dL (7-18); BUN/Creat Ratio 10.9 RATIO (10-20); Calcium,Total 8.9 mg/dL (8.5-10.1); Chloride 106 mmol/L (98-107); Cholesterol 147 mg/dL (200); EST Glomerular Filtration Rate 80 mL/min (>60); Est Glom Filt Rate - Afr Amer 97 mL/min (>60); Glucose 106 mg/dL (74-106); High Density Lipoprotein 35 mg/dL; Potassium 3.6 mmol/L (3.5-5.1); Protein, Total 7.9 g/dL (6.4-8.2); Sodium Level 142 mmol/L (136-145); Triglycerides 215 mg/dL; Very Low Density Lipoprotein 43 mg/dL (5-40)
== END ==
PROVIDERS: PCP Family Medicine; Referring Provider Family Medicine; Visit Provider Family Medicine
DX: Z00.00 Encounter for general adult medical examination without abnormal findings (principal); E78.00 Pure hypercholesterolemia, unspecified
CPT/HCPCS: 36415; 80053; 80061

== ENCOUNTER → 2022-03-26 | Outpatient (CLI) | payer OTHER, SELFPAY ==
[2022-03-26 12:15] LABS: Absolute Lymphocyte Count 1.47 X10^3/uL (0.83-4.51); Absolute Neutrophil Count 3.2 X10^3/uL (2.0-7.7); Basophil# 0.02 X10^3/uL; Basophil% 0.4 % (0-1); Eosinophil# 0.16 X10^3/uL; Eosinophils% 3.1 % (0-5); Hematocrit 48.2 % (40-54); Hemoglobin 15.9 g/dL (13.0-16.5); Lymphocyte # 1.47 X10^3/ul (0.83-4.51); Lymphocyte % 28.6 % (19-41); Mean Corpuscular Hgb 28.2 pg (27.0-32.0); Mean Corpuscular Volume 85.6 fL (80-94); Mean Platelet Vol. 10.8 fl (6.2-12.0); Monocyte# 0.33 X10^3/uL; Monocyte% 6.4 % (0-10); NRBC Flagged by Analyzer 0 % (0-5); Neutrophil # 3.15 X10^3/uL (2.7-7.7); Neutrophil % 61.3 % (47-70); Platelet Count 184 K/mm3 (150-450); RBC Distribution Width CV 13.2 % (11.6-14.6); RBC Distribution Width SD 41.2 fl (35.1-43.9); Red Blood Count 5.63 M/mm3 (4.6-6.2); White Blood Count 5.1 K/mm3 (4.4-11.0)
[2022-03-26 12:29] LABS: D-Dimer Quantitative (DVT/PE) < 0.27 FEU/ug/m (0.27-0.49)
[2022-03-26 12:55] LABS: Anion Gap 4 (5-15); BUN 12 mg/dL (7-18); BUN/Creat Ratio 12.4 RATIO (10-20); Calcium,Total 8.9 mg/dL (8.5-10.1); Chloride 106 mmol/L (98-107); Creatinine, Serum 0.97 mg/dL (0.70-1.30); EST Glomerular Filtration Rate 93 mL/min (>60); Est Glom Filt Rate - Afr Amer 112 mL/min (>60); Glucose 116 mg/dL (74-106); Potassium 3.9 mmol/L (3.5-5.1); Sodium Level 141 mmol/L (136-145)
== END | disposition home or self-care (01) ==
LOC: MFPLAB 10:46
PROVIDERS: PCP Family Medicine; Referring Provider Family Medicine; Visit Provider Family Medicine
DX: R07.9 Chest pain, unspecified (principal)
CPT/HCPCS: 36415; 80048; 84484; 85025; 85379

== ENCOUNTER → 2023-06-07 | Outpatient (CLI) | payer OTHER, SELFPAY ==
[2023-06-07 18:11] LABS: Bacteria 0 SEEN /hpf (None Seen); Mucous, Urine 0 SEEN /hpf (<or=2+); Red Blood Cells-Urine 0 SEEN /hpf (0-5); White Blood Cells 0 SEEN /hpf (0-5)
[2023-06-07 18:22] LABS: Color, Urine Yellow (Yellow); Glucose, Dipstick Normal (Normal); Ketone-Dipstick Negative (Negative); Leukocyte Esterase-Dipstick Negative /ul (Negative); Nitrite-Dipstick Negative (Negative); Occult Blood-Urine Negative /ul (Negative); Protein-Dipstick Negative (Negative); Urine Bilirubin Dipstick Negative (Negative); Urine Clarity Sl. Cloudy (Clear); Urine Urobilinogen Normal (Normal)
[2023-06-07 19:00] LABS: Squamous Epithelial Cells - UA 0-5 SEEN /hpf (0-5)
== END | disposition home or self-care (01) ==
PROVIDERS: PCP Family Medicine; Referring Provider Physician Assistant; Visit Provider Physician Assistant
DX: R30.0 Dysuria (principal); N50.812 Left testicular pain
CPT/HCPCS: 81001; 87086; 87491; 87591

== ENCOUNTER → 2023-07-05 | Outpatient (CLI) | payer OTHER, SELFPAY ==
--- NOTE | 2023-07-05 13:27 | CT_ITS ---
EXAM: CT ABDOMEN AND PELVIS WITH INTRAVENOUS CONTRAST CLINICAL INDICATION: left lower quad pain; questioning diverticulitis. TECHNIQUE: Helically acquired images were obtained of the abdomen and pelvis with intravenous contrast. This CT exam was performed using one or more of the following dose reduction techniques: automated exposure control, adjustment of the mA and/or kV according to patient size, and/or use of iterative reconstruction technique. CONTRAST: Oral and amp; IV Gastrografin and amp; 100mL Isovue-300 COMPARISON: 03/28/2020. FINDINGS: LOWER THORAX: Calcified granuloma in the right lung base. Mesenteric stranding in the left lower lobe anteriorly associated with 0.8 cm focal fat. No cardiomegaly. No significant pericardial effusion. ABDOMEN: LIVER: Unremarkable. Homogeneous. No focal mass. GALLBLADDER AND BILE DUCTS: Unremarkable. No calcified gallstones. No gallbladder distention or wall edema. No intra- or extrahepatic biliary ductal dilation. PANCREAS: Unremarkable. No focal cystic or solid mass. SPLEEN: Unremarkable. Normal size without focal cystic or solid mass. ADRENALS: Unremarkable. No nodules. KIDNEYS AND URETERS: Unremarkable. Normal renal size and position. No hydronephrosis. STOMACH AND BOWEL: No bowel obstruction. No evidence of diverticulitis. PELVIS: APPENDIX: No evidence of acute appendicitis. BLADDER: Unremarkable. REPRODUCTIVE: Unremarkable as visualized. No mass. ABDOMEN and PELVIS: INTRAPERITONEAL SPACE: Unremarkable. No ascites or other fluid collection. No free air. BONES/JOINTS: Unremarkable. No suspicious lytic or blastic abnormality. SOFT TISSUES: Unremarkable. No discrete abdominal or pelvic wall hernia. VASCULATURE: Unremarkable. Abdominal aorta is normal in caliber. LYMPH NODES: Unremarkable. No enlarged lymph nodes. CT/Abdomen/Pelvis WITH Contrast IMPRESSION: Mesenteric inflammatory stranding and focal fat in the left lower quadrant may represent focal fat necrosis or nonspecific panniculitis. Electronically Signed: Miya Weinstein MD at 16:45 EDT Reading Location ID and State: [id number] / Tel , Service support ,
== END | disposition home or self-care (01) ==
LOC: CT 13:26
PROVIDERS: PCP Family Medicine; Referring Provider Nurse Practitioner Family; Visit Provider Nurse Practitioner Family
DX: R10.32 Left lower quadrant pain (principal)
CPT/HCPCS: 74177; Q9967

== ENCOUNTER → 2023-07-07 | Outpatient (CLI) | payer OTHER, SELFPAY ==
[2023-07-07 15:46] LABS: Anion Gap 6 (5-15); BUN 13 mg/dL (7-18); BUN/Creat Ratio 13.5 RATIO (10-20); CPK Total, Creatine Kinase 116 U/L (39-308); Calcium,Total 9.4 mg/dL (8.5-10.1); Chloride 105 mmol/L (98-107); Creatinine, Serum 0.96 mg/dL (0.70-1.30); EST Glomerular Filtration Rate 93 mL/min (>60); Est Glom Filt Rate - Afr Amer 112 mL/min (>60); Glucose 85 mg/dL (74-106); Hematocrit 47.1 % (40-54); Hemoglobin 15.2 g/dL (13.0-16.5); Mean Corp Hgb Conc 32.3 g/dL (32-36); Mean Corpuscular Hgb 28.9 pg (27.0-32.0); Mean Corpuscular Volume 89.5 fL (80-94); Mean Platelet Vol. 11.1 fl (6.2-12.0); Platelet Count 189 K/mm3 (150-450); Potassium 4.2 mmol/L (3.5-5.1); RBC Distribution Width CV 12.6 % (11.6-14.6); RBC Distribution Width SD 41.4 fl (35.1-43.9); Red Blood Count 5.26 M/mm3 (4.6-6.2); Sodium Level 139 mmol/L (136-145); White Blood Count 4.7 K/mm3 (4.4-11.0)
[2023-07-07 15:50] LABS: Erythrocyte Sedimentation Rate 7 mm/hr (0-20)
[2023-07-09 11:09] LABS: ANTINUCLEAR ANTIBODIES DIRECT Negative (Negative)
== END | disposition home or self-care (01) ==
LOC: MFPLAB 11:43
PROVIDERS: PCP Family Medicine; Visit Provider Nurse Practitioner Family
DX: K65.4 Sclerosing mesenteritis (principal)
CPT/HCPCS: 36415; 80048; 82550; 85027; 85652; 86038

== ENCOUNTER → 2025-02-13 | Outpatient (CLI) | payer OTHER, SELFPAY ==
[2025-02-13 10:45] LABS: ALB/GLOB Ratio 1.6 RATIO (0.9-2.4); AST(SGOT) 21 U/L (<=37); Alanine Aminotransfer ALT/SGPT 18 U/L (<=46); Albumin, Serum 4.6 g/dL (3.5-5.0); Alkaline Phosphatase 66 U/L (40-129); Anion Gap 12 (5-15); BUN 14 mg/dL (4-19); BUN/Creat Ratio 13.8 RATIO (10-20); Calcium,Total 9.1 mg/dL (7.6-11.0); Carbon Dioxide 24.5 mmol/L (21.0-32.0); Chloride 104 mmol/L (98-108); Cholesterol 125 mg/dL (<=200); Creatinine, Serum 1.02 mg/dL (0.70-1.20); EST Glomerular Filtration Rate 96 (>60); Globulin 2.9 g/dL (2.2-4.2); Glucose 106 mg/dL (70-99); High Density Lipoprotein 45 mg/dL; Low Density Lipoprotein Calc. 57 mg/dL; Potassium 3.9 mmol/L (3.3-5.1); Protein, Total 7.5 g/dL (5.9-8.4); Sodium Level 140 mmol/L (133-145); Total Bilirubin 0.57 mg/dL (0.00-1.30); Triglycerides 116 mg/dL; Very Low Density Lipoprotein 23 mg/dL (5-40)
== END | disposition home or self-care (01) ==
LOC: MFPLAB 09:01
PROVIDERS: PCP Family Medicine; Referring Provider Family Medicine; Visit Provider Family Medicine
DX: Z00.00 Encounter for general adult medical examination without abnormal findings (principal)
CPT/HCPCS: 36415; 80053; 80061

== ENCOUNTER → 2025-02-16 | Outpatient (CLI) | payer OTHER, SELFPAY ==
[2025-02-16 15:47] LABS: Color, Urine Yellow (Yellow); Glucose, Dipstick Normal (Normal); Ketone-Dipstick Negative (Negative); Leukocyte Esterase-Dipstick Negative /ul (Negative); Nitrite-Dipstick Negative (Negative); Occult Blood-Urine 10 /ul (Negative); Protein-Dipstick Negative (Negative); Specific Gravity, Urine 1.005 (1.002-1.030); Urine Bilirubin Dipstick Negative (Negative); Urine Clarity Clear (Clear); Urine Urobilinogen Normal (Normal)
== END | disposition home or self-care (01) ==
LOC: MFPLAB 12:02
PROVIDERS: PCP Family Medicine; Referring Provider Family Medicine; Visit Provider Family Medicine
DX: E78.5 Hyperlipidemia, unspecified (principal)
CPT/HCPCS: 81002